=== PATIENT | male | born 1955 | race Caucasian/White ===

== ENCOUNTER 2016-04-17 15:16 | Inpatient (IN) | payer BC ==
[2016-04-17] MEDS ORDERED: ALBUTEROL SULFATE 2.5 MG/0.5 ML VIAL.NEB IH ONE ×2 (16:09→16:15)
[2016-04-17 16:34] LABS: Hematocrit 40.8 % (42.0-52.0); Hemoglobin 13.4 gm/dL (13.5-18.0); Mean Corpuscular Hemoglobin 30.9 pg (27-31); Mean Corpuscular Hgb Conc 32.8 g/dl (32-36); Mean Platelet Volume 11.6 fl (6.0-9.5); Neutrophil # 10.3 K/mm3 (1.3-6.0); Platelet Count 346 K/mm3 (150-450); Red Blood Count 4.34 M/mm3 (4.7-6.0); White Blood Count 13.6 K/mm3 (4.0-10.5)
--- NOTE | 2016-04-17 16:47 | ERNOTE ---
[id number] 4d 04/17/16 16:30 Source: patient Exam Limitations: no limitations - Immun/Allergies/Home Medications Immunizations: IMMUNIZATION HX Immunizations Up to Date Yes History of Influenza Vaccine No Allergies/Adverse Reactions: Allergies Iodinated Contrast Media - IV Dye Allergy (Mild, Verified 04/17/16 16:15) Hives iodine Allergy (Mild, Verified 04/17/16 16:15) Hives baclofen Adverse Reaction (Mild, Verified 04/17/16 16:15) FEELS WEIRD Home Medications: HOME MEDICATIONS Diltiazem HCl [Tiazac] 360 mg PO DAILY 08/05/14 [Last Taken Unknown] Mometasone/Formoterol [Dulera 200 Mcg/5 Mcg Inhaler] 2 puff IH BID 08/05/14 [ Last Taken Unknown] Tiotropium [place] [Spiriva] 1 cap IH DAILY 08/05/14 [Last Taken Unknown] Celecoxib [Celebrex] 400 mg PO DAILY 04/17/16 [Last Taken Unknown] Duloxetine HCl [Cymbalta] 60 mg PO BID 04/17/16 [Last Taken Unknown] Finasteride [Proscar] 5 mg PO DAILY 04/17/16 [Last Taken Unknown] Promethazine HCl [Phenergan] 25 mg PO QID PRN 04/17/16 [Last Taken Unknown] Tamsulosin HCl [Flomax] 0.4 mg PO DAILY 04/17/16 [Last Taken Unknown] Tizanidine HCl 4 mg PO TID 04/17/16 [Last Taken Unknown] - History of Present Illness Narrative: Patient started with URI symptoms about a week ago as well as nausea, vomiting and diarrhea. He was seen by his doctor,diagnosed with a viral illness and send home. His GI symptoms have resolved but he has been getting increasingly short of breath. He has some shortness of breath for quite a while but it has gotten worse over the last five days, slight cough with green sputum, subjective fever and chills. In his doctor's office today he was found to have O2sats of 80% and was send over to the ER Initiating event: Reports: upper resp illness. Denies: out of meds, sports/ exercise Frequency of episodes: Reports: no prior episodes Modifying Factors - (Improves): Reports: oxygen, rest Modifying Factors (Worsens): Reports: activity, coughing. Denies: lying down Associated Symptoms-Dyspnea: Reports: fever/chills, sweating, cough. Denies: chest pain/discomfort Prior Treatment: Reports: recently seen. Denies: currently on antibiotics Review of Systems - Review of Systems Constitutional: Present: See HPI, recent illness, fever, chills ENT: Present: nose congestion. Absent: ear pain, sore throat Respiratory: Present: See HPI, shortness of breath, cough Cardiology: Present: See HPI. Absent: chest pain Gastrointestinal/Abdominal: Present: See HPI. Absent: nausea, vomiting, abdominal pain Genitourinary: Present: other - nycturia 3-4 Musculoskeletal: Absent: muscle pain Neurological: Absent: headache - Patient's Past Medical History Patient History - Medical: Chronic Pain Patient History - Cardiac/Respiratory: COPD, Hypertension Patient History - Cancer: No Hx of Cancer Patient History - Surgical Procedures: Other - hernia - Family History Mother Family History - Medical: Hypothyroidism Family History - Cardiac/Respiratory: History Unknown Family History - Cancer: History Unknown Father Family History - Medical: Family History - Cancer: Lung Sister Family History - Medical: , Diabetes Type 2 - Social History Smoking Status: Current every day smoker Cigarettes Packs Per Day: 0.5 Alcohol Use: none Drug Use: none - Immunizations Immunizations Up to Date: Yes Hx Pneumococcal Vaccination: No History of Influenza Vaccine: No Physical Exam - Physical Exam General Appearance: Present: wd/wn, alert, no apparent distress Eye Exam: Normal inspection: bilateral, PERRL: bilateral Ears, Nose, Throat: Present: nasal congestion, normal pharynx. Absent: abnormal TM (R), abnormal TM (L) Respiratory: Present: no respiratory distress, decreased breath sounds, expiration (prolonged), wheezing Cardiovascular/Chest: Present: regular rate, rhythm, no murmur Gastrointestinal/Abdominal: Present: normal bowel sounds, nontender, nondistended, soft Extremity Exam: Present: no edema Neurological Exam: Present: alert, oriented, normal mood/affect Skin Exam: Present: normal color, warm/dry ED Progress - Results and Orders Patient's Lab Results:: I have reviewed the patient's lab results. - Vital Signs Patient's Vital Signs:: I have reviewed the patient's vital signs. Vital Signs: Vital Signs 04/17/16 04/17/16 15:57 16:16 Temperature 36.0 C L Pulse Rate 87 85 Respiratory 22 H 17 Rate Blood Pressure 150/78 O2 Sat by Pulse 83 L 93 Oximetry - X-Ray X-Ray #1 X-Ray: chest - possible right lower lung infiltrate Interpretation: Interp. by me - Progress/Reassessment Chief Complaint: Dyspnea Progress Note-Subjective: 04/17/16 17:35 discussed results with patient, agreed to admission patient just went to bathroom without oxygen, very short of breath 04/17/16 17:40 discussed with cheyenne Lopez to admit for pneumonia and COPD, start antibiotics per protocol Departure Clinical Impression: Pneumonia Qualifiers: Pneumonia type: due to unspecified organism Laterality: right Lung location: lower lobe of lung Qualified Code(s): J18.1 - Lobar pneumonia, unspecified organism COPD (chronic obstructive pulmonary disease) Qualifiers: COPD type: COPD with acute exacerbation Qualified Code(s): J44.1 - Chronic obstructive pulmonary disease with (acute) exacerbation - Departure Disposition: [facility] Condition: Good
[2016-04-17 16:54] LABS: Anion Gap 10.6 mmol/L (6.8-13.8); BUN/Creatinine Ratio 13.5 (9.0-21.6); Bilirubin, Total 0.2 mg/dL (0.0-1.1); Ca. Corrected For Albumin 10.2 mg/dL (8.4-10.2); Calcium * 8.9 mg/dL (7.9-10.9); Potassium 3.6 mmol/L (3.4-4.6); Total Protein 7.3 gm/dL (6.2-8.2)
[2016-04-17] MEDS ORDERED: METHYLPREDNISOLONE SOD SUCC/PF 125 MG/2 ML VIAL IV ONE (17:46)
[2016-04-17] MEDS ORDERED: AZITHROMYCIN 250 MG TABLET PO STA (17:52)
[2016-04-17] MEDS ORDERED: ACETAMINOPHEN 325 MG TABLET PO PRN (17:52)
[2016-04-17] MEDS ORDERED: ALBUTEROL SULFATE 2.5 MG/0.5 ML VIAL.NEB IH PRN (18:22)
[2016-04-17] MEDS ORDERED: ALBUTEROL SULFATE/IPRATROPIUM 3 ML NEBU IH SCH (19:00)
[2016-04-17] MEDS: NORMAL SALINE 1,000 ML IV PRN (19:30)
--- NOTE | 2016-04-17 20:10 | HP ---
<Tegan Muhammad - Last Filed: 04/17/16 23:13> Chief Complaint - Chief Complaint Date of Service: 04/17/16 Time of Service: 20:04 Chief Complaint: SOB History of Present Illness: Pt is a 60 year old WM pt of Dr. Palomares who presented to the ER following a doctors offices visit with o2 sats of 82% on RA for SOB. PMH is significant for: HTN, COPD, and chronic middle back pain. He states one week ago he experienced chills, vomiting, fatigue, and SOB. or Sunday (04/13 or 04/14) he was seen by Dr. Palomares and dx with gastroenteritis. He states that his breathing has been progressively getting worse. Denies any sore throat , fever/chill, or n/v/d currently. +orthopnea, +cough no sputum production. Denies chest pain, lightheadedness, or dizziness. States that his granddaughter was sick with cold last week. Er workup revealed: WBC 13.6, H/H 13.4/40.8, BNP 458. Chest xray with possible RLL infiltrate. Oxygen saturations improved with 2LNC to 94%, all other VS stable. He will be admitted to in patient observation for COPD exacerbation due to CAP requiring IV antibiotics, steroids, and breathing treatments. - Patient's Past Medical History Patient History - Medical: No pertinent hx, Chronic Pain - middle back Patient History - Cardiac/Respiratory: COPD, Hypertension Patient History - Cancer: No Hx of Cancer Patient History - Surgical Procedures: Other - umbilical hernia repair Patient History - Other: None - Family History Mother Family History - Medical: Hypothyroidism Family History - Cardiac/Respiratory: History Unknown Family History - Cancer: History Unknown Father Family History - Medical: Family History - Cancer: Lung Sister Family History - Medical: , Diabetes Type 2 - Social History Living Situations: alone Does anyone smoke in the home?: No Smoking Status: Current every day smoker Cigarettes Packs Per Day: 0.5 - ppd Have you smoked in the past 12 months: Yes Do you dip or chew tobacco: No Patient requests Smoking Cessation Consult: Yes Initiate information on Smoking Cessation: Yes Alcohol Use: none Drug Use: none - Immunizations Immunizations Up to Date: Yes Hx Pneumococcal Vaccination: No History of Influenza Vaccine: No Review Of Systems (GEN) - Review of Systems Generalized/Overall Review: Present: Fatigue EENTM: Present: No Symptoms Reported Respiratory: Present: Cough, Shortness of Breath, Orthopnea Cardiac: Present: No Symptoms Reported Abdominal: Present: No Symptoms Reported Genitourinary: Present: No Symptoms Reported Musculoskeletal: Present: Back Pain Neurological: Present: No Symptoms Reported Skin: Present: No Symptoms Reported Endocrine: Present: No Symptoms Reported Immunizations: IMMUNIZATION HX Immunizations Up to Date Yes History of Influenza Vaccine No Hx Pneumococcal Vaccination No Allergies/Adverse Reactions: Allergies Allergy/AdvReac Type Severity Reaction Status Date / Time Iodinated Contrast Media - Allergy Mild Hives Verified 04/17/16 16:15 IV Dye iodine Allergy Mild Hives Verified 04/17/16 16:15 baclofen AdvReac Mild FEELS WEIRD Verified 04/17/16 16:15 Home Medications: HOME MEDICATIONS Diltiazem HCl [Tiazac] 360 mg PO DAILY 08/05/14 [Last Taken Unknown] Mometasone/Formoterol [Dulera 200 Mcg/5 Mcg Inhaler] 2 puff IH BID 08/05/14 [ Last Taken Unknown] Tiotropium [place] [Spiriva] 1 cap IH DAILY 08/05/14 [Last Taken Unknown] Celecoxib [Celebrex] 400 mg PO DAILY 04/17/16 [Last Taken Unknown] Duloxetine HCl [Cymbalta] 60 mg PO BID 04/17/16 [Last Taken Unknown] Finasteride [Proscar] 5 mg PO DAILY 04/17/16 [Last Taken Unknown] Promethazine HCl [Phenergan] 25 mg PO QID PRN 04/17/16 [Last Taken Unknown] Tamsulosin HCl [Flomax] 0.4 mg PO DAILY 04/17/16 [Last Taken Unknown] Tizanidine HCl 4 mg PO TID 04/17/16 [Last Taken Unknown] Exam - Exam Vital Signs: Vital Signs - Last Taken Temp 36.7 C 04/17/16 19:46 Pulse 85 04/17/16 19:46 Resp 22 H 04/17/16 19:46 BP 144/77 04/17/16 19:46 Pulse Ox 22 L 04/17/16 19:46 Constitutional: Present: Alert, Oriented x3, Cooperative, Mild distress ENT Exam: Present: normal ENT inspection, hearing grossly normal Eye Exam: bilateral eye: normal inspection, PERRL Back Exam: Present: normal inspection, no vertebral tenderness Respiratory: Present: chest non-tender, decreased breath sounds, crackles, wheezing, expiration (prolonged) Cardiovascular/Chest: Present: no chest tenderness, no edema, no murmur, tachycardia Peripheral Pulses: dorsalis-pedis (R): 2+, dorsalis-pedis (L): 2+, radial (R): 2 +, radial (L): 2+ Abdomen: Present: Normal bowel sounds, soft, nontender, nondistended, no rebound tenderness Extremity: Present: normal range of motion, non-tender, normal inspection, no pedal edema, no calf tenderness, normal capillary refill Skin Exam: Present: normal color, warm/dry, no cyanosis Lymphatic: Present: no adenopathy Neurologic: Present: alert, normal mood/affect, oriented x 3, abnormal cerebellar tests Appearance: Present: appropriate appearance, appropriate insight, neat, no memory impairment Eye contact: Present: cooperative, good eye contact, normal speech Thoughts: Present: normal thought pattern, no apparent hallucination Diagnostic Studies: Laboratory Results Laboratory Tests 04/17/16 04/17/16 16:20 16:20 WBC 13.6 H Hgb 13.4 L Hct 40.8 L Plt Count 346 MPV 11.6 H Immature Gran % (Auto) 0.80 H Immature Gran # (Auto) 0.11 H Neutrophils % 76.0 H Lymphocytes % 14.2 L Sodium 138 Potassium 3.6 Chloride 100 Carbon Dioxide 31.0 Anion Gap 10.6 BUN 12 Creatinine 0.89 BUN/Creatinine Ratio 13.5 Random Glucose 120 H AST 26 ALT 46 Alkaline Phosphatase 82 B-Natriuretic Peptide 458 H Assessment/Plan - Assessment/Plan (1) COPD (chronic obstructive pulmonary disease) Assessment: Acute COPD exacerbation due to CAP. Will treat with IV steroids and scheduled breathing treatments. IS and cornet for pulmonary toileting, provide supplemental O2 to maintain sats >90%. Repeat labs in am. -Solumedrol IV 60mg Q6H -IS/[place] -Supplemental O2-maintain sats >90% -Duoneb treatments Q4H and Q2H PRN for wheezing Problem: Chronic QualifierTitle: COPD type: COPD with acute exacerbation Qualified Code(s) : J44.1 - Chronic obstructive pulmonary disease with (acute) exacerbation (2) Pneumonia Assessment: Chest xray with diffuse interstitial prominence bilaterally. WBC slightly elevated at 13.6, will check procalcitonin. Has remained afebrile since admission. Will treat with IV antibiotics and treatment as above in COPD exacerbation. -IV Rocephin 1gm Q24H -PO zithromax 250mg Q24H -CBC/CMP in am Problem: Suspected QualifierTitle: Pneumonia type: due to unspecified organism Laterality: right Lung location: lower lobe of lung Qualified Code(s): J18.1 - Lobar pneumonia, unspecified organism (3) BPH (benign prostatic hypertrophy) with urinary retention Assessment: Stable -Flomax 0.4mg Q day -Proscar 5mg Q day Problem: Chronic (4) HTN (hypertension) Assessment: Stable -VS Q4H -Cardizem 360mg day Problem: Chronic (5) Chronic mid back pain Assessment: Will add heating pad for comfort and continue home medications. -Cymbalta 60mg Q24H -Celebrex 400mg Q24H -Zanaflex PRN -Heating pad PRN Problem: Chronic QualifierTitle: Back pain laterality: midline Qualified Code(s): M54.6 - Pain in thoracic spine; G89.29 - Other chronic pain <Omar Nielsen - Last Filed: 04/18/16 18:36> Immunizations: IMMUNIZATION HX Immunizations Up to Date Yes History of Influenza Vaccine No Hx Pneumococcal Vaccination No Exam - Exam Vital Signs: Vital Signs - Last Taken Temp 36.6 C 04/18/16 11:43 Pulse 100 04/18/16 18:23 Resp 23 H 04/18/16 18:23 BP 117/76 04/18/16 11:43 Pulse Ox 93 04/18/16 18:23 Diagnostic Studies: Abnormal Lab Results 04/18/16 04/18/16 Range/Units 05:50 05:50 RBC 4.45 L (4.7-6.0) M/mm3 Hct 41.7 L (42.0-52.0) % MPV 11.1 H (6.0-9.5) fl Immature Gran % (Auto) 1.00 H (0.001-0.429) % Immature Gran # (Auto) 0.10 H (0.000-0.0310) K/mm3 Neutrophils % 88.8 H (42-75.0) % Lymphocytes % 9.5 L (20-51) % Neutrophils # 9.1 H (1.3-6.0) K/mm3 Lymphocytes # 1.0 L (1.5-3.5) k/mm3 Random Glucose 170 H D (70-110) mg/dL Calcium Adj for Albumin 10.4 H (8.4-10.2) mg/dL Albumin 1.9 L (3.4-5.0) gm/dl Microbiology 04/17/16 17:57 Blood Culture - Preliminary Blood NO GROWTH 24 HOURS Laboratory Results WBC 10.3 K/mm3 (4.0-10.5) D 04/18/16 05:50 RBC 4.45 M/mm3 (4.7-6.0) L 04/18/16 05:50 Hgb 13.6 gm/dL (13.5-18.0) 04/18/16 05:50 Hct 41.7 % (42.0-52.0) L 04/18/16 05:50 MCV 93.7 fl (78-100) 04/18/16 05:50 MCH 30.6 pg (27-31) 04/18/16 05:50 MCHC 32.6 g/dl (32-36) 04/18/16 05:50 RDW 14.0 % (11.5-14.0) 04/18/16 05:50 Plt Count 359 K/mm3 (150-450) 04/18/16 05:50 MPV 11.1 fl (6.0-9.5) H 04/18/16 05:50 Immature Gran % (Auto) 1.00 % (0.001-0.429) H 04/18/16 05:50 Immature Gran # (Auto) 0.10 K/mm3 (0.000-0.0310) H 04/18/16 05:50 Neutrophils % 88.8 % (42-75.0) H 04/18/16 05:50 Lymphocytes % 9.5 % (20-51) L 04/18/16 05:50 Monocytes % 0.6 % (0.0-9) 04/18/16 05:50 Eosinophils % 0.0 % (0.0-3.0) 04/18/16 05:50 Basophils % 0.1 % (0.0-1.0) 04/18/16 05:50 Nucleated RBC % 0.0 k/mm3 (0-1) 04/18/16 05:50 Neutrophils # 9.1 K/mm3 (1.3-6.0) H 04/18/16 05:50 Lymphocytes # 1.0 k/mm3 (1.5-3.5) L 04/18/16 05:50 Monocytes # 0.1 k/mm3 (0.0-1.0) 04/18/16 05:50 Eosinophils # 0.0 k/mm3 (0.0-0.7) 04/18/16 05:50 Absolute Basophils 0.0 k/mm3 (0.0-0.1) 04/18/16 05:50 Sodium 140 mmol/L (132-142) 04/18/16 05:50 Plasma Sodium 141 mmol/L (130-142) 04/18/16 05:50 Potassium 4.6 mmol/L (3.4-4.6) D 04/18/16 05:50 Chloride 102 mmol/L (97-106) 04/18/16 05:50 Carbon Dioxide 30.0 mmol/L (24-32.6) 04/18/16 05:50 Anion Gap 12.6 mmol/L (6.8-13.8) 04/18/16 05:50 BUN 13 mg/dL (6-23) 04/18/16 05:50 Creatinine 0.78 mg/dL (0.4-1.4) 04/18/16 05:50 Est GFR (Non-Af Amer) 108 mL/min (60-130) 04/18/16 05:50 BUN/Creatinine Ratio 16.7 (9.0-21.6) 04/18/16 05:50 Random Glucose 170 mg/dL (70-110) H D 04/18/16 05:50 Calcium 9.0 mg/dL (7.9-10.9) 04/18/16 05:50 Calcium Adj for Albumin 10.4 mg/dL (8.4-10.2) H 04/18/16 05:50 Total Bilirubin 0.2 mg/dL (0.0-1.1) 04/18/16 05:50 AST 26 U/L (0-48) 04/18/16 05:50 ALT 48 U/L (19-67) 04/18/16 05:50 Alkaline Phosphatase 83 U/L (50-170) 04/18/16 05:50 B-Natriuretic Peptide 458 pg/mL (5-175) H 04/17/16 16:20 Total Protein 7.1 gm/dL (6.2-8.2) 04/18/16 05:50 Albumin 1.9 gm/dl (3.4-5.0) L 04/18/16 05:50 Procalcitonin Less than 0.05 ng/mL (0.05-0.50) L 04/17/16 16:20 Assessment/Plan - Narrative Narrative: I reviewed the chart and examined the patient. I personally directed all of [facility]'s care for him. He was in our office on 04/12/2016, complaining that he had vomiting and diarrhea and nausea. He felt terrible. At that time he did not have any respiratory signs or symptoms. He does have known COPD. He was treated at home with clear liquids, rest, and Phenergan. His gastrointestinal symptoms improved, but steadily day by day his breathing worsened. He had no fever, but had a cough. He was short of breath both at rest and even more so with activity. He returned to our office on April 17 for a reevaluation. Because his oxygen saturation on room air was about 82 or 83%, and because he was struggling to breathe, we arranged for his further evaluation to be in the [facility] emergency room. Chest x-ray suggests pneumonitis. This is probably originally viral, but could represent aspiration pneumonitis because of the recurrent vomiting he had at the beginning of this illness. He will be treated with IV steroids, nebulized bronchodilators, and intravenous antibiotics, as well as supplemental oxygen. I estimate a hospital stay of 3-4 days. - Assessment/Plan (1) COPD exacerbation Problem: Acute (2) Acute respiratory failure with hypoxia Problem: Acute
[2016-04-17] MEDS ORDERED: ALBUTEROL SULFATE/IPRATROPIUM 3 ML NEBU IH PRN (20:39)
[2016-04-17] MEDS ORDERED: METHYLPREDNISOLONE SOD SUCC 60 MG in WATER FOR INJ.,BACTERIOSTATIC 0 ML IV SCH (20:45)
[2016-04-17] MEDS: DULoxetine HCL 30 MG CAPSULE.SA PO SCH (20:46)
[2016-04-17] MEDS: tiZANidine HCL 4 MG TABLET PO SCH (20:46)
[2016-04-17] MEDS: ALBUTEROL SULFATE/IPRATROPIUM 3 ML NEBU IH SCH (22:06)
[2016-04-18] MEDS ORDERED: METHYLPREDNISOLONE SOD SUCC/PF 125 MG/2 ML VIAL IV SCH (02:00)
[2016-04-18] MEDS: ALBUTEROL SULFATE/IPRATROPIUM 3 ML NEBU IH SCH ×6 (02:20→22:25)
[2016-04-18] MEDS: NORMAL SALINE 1,000 ML IV PRN ×2 (05:44→22:59)
[2016-04-18 05:54] LABS: Hematocrit 41.7 % (42.0-52.0); Hemoglobin 13.6 gm/dL (13.5-18.0); Mean Cell Volume 93.7 fl (78-100); Mean Corpuscular Hemoglobin 30.6 pg (27-31); Mean Corpuscular Hgb Conc 32.6 g/dl (32-36); Mean Platelet Volume 11.1 fl (6.0-9.5); Neutrophil # 9.1 K/mm3 (1.3-6.0); Neutrophil % 88.8 % (42-75.0); Platelet Count 359 K/mm3 (150-450); Red Blood Count 4.45 M/mm3 (4.7-6.0); White Blood Count 10.3 K/mm3 (4.0-10.5)
[2016-04-18 06:17] LABS: Albumin * 1.9 gm/dl (3.4-5.0); Anion Gap 12.6 mmol/L (6.8-13.8); BUN/Creatinine Ratio 16.7 (9.0-21.6); Bilirubin, Total 0.2 mg/dL (0.0-1.1); Ca. Corrected For Albumin 10.4 mg/dL (8.4-10.2); Potassium 4.6 mmol/L (3.4-4.6); Total Protein 7.1 gm/dL (6.2-8.2)
[2016-04-18] MEDS: METHYLPREDNISOLONE SOD SUCC 60 MG in WATER FOR INJ.,BACTERIOSTATIC 0 ML IV SCH ×3 (07:45→20:07)
[2016-04-18] MEDS: ENOXAPARIN SODIUM 40 MG/0.4 ML SYRG SC SCH (07:47)
[2016-04-18] MEDS ORDERED: CELECOXIB 100 MG CAPSULE PO SCH (09:00)
[2016-04-18] MEDS: FLUTICASONE/SALMETEROL 14 PUFF DISK.W.DEV IH SCH ×2 (09:06→20:07)
[2016-04-18] MEDS: TAMSULOSIN HCL 0.4 MG CAP.SR.24H PO SCH (09:08)
[2016-04-18] MEDS: DILTIAZEM HCL 180 MG CAP.SR.24H PO SCH (09:08)
[2016-04-18] MEDS: AZITHROMYCIN 250 MG TABLET PO SCH (09:08)
[2016-04-18] MEDS: FINASTERIDE 5 MG TABLET PO SCH (09:08)
[2016-04-18] MEDS: DULoxetine HCL 30 MG CAPSULE.SA PO SCH ×2 (09:08→20:07)
[2016-04-18] MEDS: tiZANidine HCL 4 MG TABLET PO SCH ×3 (09:09→17:29)
--- NOTE | 2016-04-18 18:42 | PN ---
Subjective - Date and Time Seen Date: 04/18/16 Time: 07:00 Subjective Narrative: Mr. Godinez's sleep last night was interrupted by shortness of breath and coughing. This morning he feels a little bit better. He still requires supplemental oxygen. He still has a cough, but it's not as severe. He feels as if his chest is loosening up. He is extremely short of breath with moving across the room, but his appetite has improved and he is thinking about taking a shower. There is no nausea vomiting or diarrhea. Objective - Review of Systems Generalized/Overall Review: Reports: Malaise, Fatigue EENTM: Reports: Nose Congestion Respiratory: Reports: Cough, Shortness of Breath, Wheezing Cardiac: Reports: No Symptoms Reported Abdominal: Reports: No Symptoms Reported Genitourinary Symptoms: Reports: No Symptoms Reported Musculoskeletal Complaints: Reports: Back Pain Neurological: Reports: No Symptoms Reported Skin: Reports: No Symptoms Reported Endocrine: Reports: No Symptoms Reported Misc: All systems neg except as marked - Vitals Vitals: Last Vital Signs Temp 36.6 C 04/18/16 11:43 Pulse 100 04/18/16 18:23 Resp 23 H 04/18/16 18:23 BP 117/76 04/18/16 11:43 Pulse Ox 93 04/18/16 18:23 - Abnormal Lab Findings Abnormal Lab Findings: Abnormal Lab Results 04/18/16 04/18/16 Range/Units 05:50 05:50 RBC 4.45 L (4.7-6.0) M/mm3 Hct 41.7 L (42.0-52.0) % MPV 11.1 H (6.0-9.5) fl Immature Gran % (Auto) 1.00 H (0.001-0.429) % Immature Gran # (Auto) 0.10 H (0.000-0.0310) K/mm3 Neutrophils % 88.8 H (42-75.0) % Lymphocytes % 9.5 L (20-51) % Neutrophils # 9.1 H (1.3-6.0) K/mm3 Lymphocytes # 1.0 L (1.5-3.5) k/mm3 Random Glucose 170 H D (70-110) mg/dL Calcium Adj for Albumin 10.4 H (8.4-10.2) mg/dL Albumin 1.9 L (3.4-5.0) gm/dl - Exam Constitutional: Present: Alert, Oriented x3, Cooperative, Well developed, Well nourished, Mild distress ENT Exam: Present: normal ENT inspection, hearing grossly normal, pharynx normal , TMs normal, nasal congestion, nasal drainage Neck: Present: normal inspection Respiratory: Present: respiratory distress - Mild respiratory distress on examination this morning. He has 4-5 word dyspnea., decreased breath sounds, wheezing, expiration (prolonged) Cardiovascular/Chest: Present: regular rate, rhythm, no murmur, tachycardia Abdomen: Present: Normal bowel sounds, soft, nontender, nondistended, no rebound tenderness, no hepatospenomegaly, no masses Extremity: Present: normal inspection, pedal edema - Minimal pedal edema Skin Exam: Present: normal color, warm/dry, no cyanosis Neurologic: Present: alert, normal mood/affect, oriented x 3 Appearance: Present: appropriate appearance, appropriate insight, neat, no memory impairment Eye contact: Present: cooperative, good eye contact Thoughts: Present: normal thought pattern Assessment/Plan Plan Narrative: Continue IV antibiotics. Continue IV steroids. Continue, but will wean oxygen. Continue nebulized medication. Follow labs. Estimated stay of approximately 3 days. Increase ambulation. - Problems/Diagnosis (1) COPD exacerbation Problem: Acute (2) Acute respiratory failure with hypoxia Problem: Acute (3) BPH (benign prostatic hypertrophy) with urinary retention Problem: Chronic (4) COPD (chronic obstructive pulmonary disease) Problem: Chronic Qualifiers: COPD type: COPD with acute exacerbation Qualified Code(s): J44.1 - Chronic obstructive pulmonary disease with (acute) exacerbation (5) Chronic mid back pain Problem: Chronic Qualifiers: Back pain laterality: midline Qualified Code(s): M54.6 - Pain in thoracic spine; G89.29 - Other chronic pain (6) HTN (hypertension) Problem: Chronic Qualifiers: Hypertension type: essential hypertension Qualified Code(s): I10 - Essential (primary) hypertension (7) Pneumonia Problem: Suspected Qualifiers: Pneumonia type: aspiration pneumonia Aspiration pneumonia type: due to vomit Laterality: bilateral Lung location: unspecified part of lung Qualified Code(s): J69.0 - Pneumonitis due to inhalation of food and vomit
[2016-04-19] MEDS: METHYLPREDNISOLONE SOD SUCC 60 MG in WATER FOR INJ.,BACTERIOSTATIC 0 ML IV SCH ×4 (02:02→20:19)
[2016-04-19] MEDS: ALBUTEROL SULFATE/IPRATROPIUM 3 ML NEBU IH SCH ×6 (02:08→23:58)
[2016-04-19 05:37] LABS: Hematocrit 38.4 % (42.0-52.0); Hemoglobin 12.6 gm/dL (13.5-18.0); Mean Cell Volume 94.3 fl (78-100); Mean Corpuscular Hgb Conc 32.8 g/dl (32-36); Mean Platelet Volume 11.2 fl (6.0-9.5); Neutrophil # 17.2 K/mm3 (1.3-6.0); Neutrophil % 89.9 % (42-75.0); Platelet Count 358 K/mm3 (150-450); Red Blood Count 4.07 M/mm3 (4.7-6.0); Red Cell Distribution Width 14.3 % (11.5-14.0); White Blood Count 19.1 K/mm3 (4.0-10.5)
[2016-04-19 05:52] LABS: Anion Gap 10.7 mmol/L (6.8-13.8); BUN/Creatinine Ratio 21.5 (9.0-21.6); Calcium * 8.9 mg/dL (7.9-10.9); Carbon Dioxide 31.8 mmol/L (24-32.6); Estimated Creat Clear 109.1; Potassium 4.5 mmol/L (3.4-4.6)
[2016-04-19] MEDS: 0.5 NORMAL SALINE 1,000 ML IV PRN (08:56)
[2016-04-19] MEDS: INSULIN DETEMIR 100 UNITS/ML VIAL SC SCH ×2 (08:59→18:51)
[2016-04-19] MEDS: ENOXAPARIN SODIUM 40 MG/0.4 ML SYRG SC SCH (09:00)
[2016-04-19] MEDS: FLUTICASONE/SALMETEROL 14 PUFF DISK.W.DEV IH SCH ×2 (09:01→20:19)
[2016-04-19] MEDS: DILTIAZEM HCL 180 MG CAP.SR.24H PO SCH (09:02)
[2016-04-19] MEDS: FINASTERIDE 5 MG TABLET PO SCH (09:03)
[2016-04-19] MEDS: TAMSULOSIN HCL 0.4 MG CAP.SR.24H PO SCH (09:03)
[2016-04-19] MEDS: DULoxetine HCL 30 MG CAPSULE.SA PO SCH ×2 (09:03→20:19)
[2016-04-19] MEDS: tiZANidine HCL 4 MG TABLET PO SCH ×3 (09:03→17:06)
[2016-04-19] MEDS: AZITHROMYCIN 250 MG TABLET PO SCH (09:04)
--- NOTE | 2016-04-19 09:05 | PN ---
Subjective - Date and Time Seen Date: 04/19/16 Time: 07:10 Subjective Narrative: Mr. Godinez's sleep last night was less interrupted by shortness of breath and coughing. This morning he feels moderately better. He still requires supplemental oxygen. He still has a cough, but it's not as severe. He feels as if his chest is loosening up. He is less short of breath with moving across the room, his appetite has improved and yesterday he managed to take a shower. There is no nausea vomiting or diarrhea. He has not yet been walking in the halls. Objective - Review of Systems Generalized/Overall Review: Reports: Malaise EENTM: Reports: No Symptoms Reported Respiratory: Reports: Cough, Shortness of Breath Cardiac: Reports: No Symptoms Reported Abdominal: Reports: No Symptoms Reported Genitourinary Symptoms: Reports: No Symptoms Reported Musculoskeletal Complaints: Reports: No Symptoms Reported Neurological: Reports: No Symptoms Reported Skin: Reports: No Symptoms Reported Endocrine: Reports: No Symptoms Reported Misc: All systems neg except as marked - Vitals Vitals: Last Vital Signs Selected Entries 04/18/16 04/19/16 04/19/16 06:59 02:20 06:19 Temperature 36.5 C 36.7 C Temperature Oral Oral Source Pulse Rate 99 95 97 Pulse Strength Normal Respiratory 20 18 20 Rate Respiratory Normal Depth Respiratory Normal Effort Non-Labored Respiratory Normal Pattern Blood Pressure 139/82 130/79 Blood Pressure Supine Position O2 Sat by Pulse 94 92 Oximetry Oxygen Delivery Nasal Cannula Nasal Cannula Nasal Cannula Method Oxygen Flow 3 2 2 Rate - Abnormal Lab Findings Abnormal Lab Findings: Abnormal Lab Results 04/19/16 04/19/16 Range/Units 05:15 05:15 WBC 19.1 H D (4.0-10.5) K/mm3 RBC 4.07 L (4.7-6.0) M/mm3 Hgb 12.6 L (13.5-18.0) gm/dL Hct 38.4 L (42.0-52.0) % RDW 14.3 H (11.5-14.0) % MPV 11.2 H (6.0-9.5) fl Immature Gran % (Auto) 0.80 H (0.001-0.429) % Immature Gran # (Auto) 0.16 H (0.000-0.0310) K/mm3 Neutrophils % 89.9 H (42-75.0) % Lymphocytes % 6.7 L (20-51) % Neutrophils # 17.2 H (1.3-6.0) K/mm3 Lymphocytes # 1.3 L (1.5-3.5) k/mm3 Plasma Sodium 144 H (130-142) mmol/L Random Glucose 218 H (70-110) mg/dL - Exam Constitutional: Present: Alert, Oriented x3, Cooperative, Well developed, Well nourished, Mild distress ENT Exam: Present: normal ENT inspection, hearing grossly normal Neck: Present: normal inspection Respiratory: Present: decreased breath sounds, wheezing, expiration (prolonged) Cardiovascular/Chest: Present: regular rate, rhythm, no murmur Abdomen: Present: Normal bowel sounds, soft, nontender, nondistended, no rebound tenderness, no hepatospenomegaly, no masses Extremity: Present: normal inspection, no pedal edema Skin Exam: Present: normal color, warm/dry, no cyanosis Neurologic: Present: alert, oriented x 3 Appearance: Present: appropriate appearance, appropriate insight, neat, no memory impairment Eye contact: Present: cooperative, good eye contact, normal speech - still SOB with talking, but less so Assessment/Plan Plan Narrative: Hyperglycemia from steroids. Otherwise improving. DC Tele. Add insulin. Follow labs. Walk more. IV antibiotics, taper O2, breathing treatments. Home in 2 days. - Problems/Diagnosis (1) COPD exacerbation Problem: Acute (2) Acute respiratory failure with hypoxia Problem: Acute (3) BPH (benign prostatic hypertrophy) with urinary retention Problem: Chronic (4) COPD (chronic obstructive pulmonary disease) Problem: Chronic Qualifiers: COPD type: COPD with acute exacerbation Qualified Code(s): J44.1 - Chronic obstructive pulmonary disease with (acute) exacerbation (5) Chronic mid back pain Problem: Chronic Qualifiers: Back pain laterality: midline Qualified Code(s): M54.6 - Pain in thoracic spine; G89.29 - Other chronic pain (6) HTN (hypertension) Problem: Chronic Qualifiers: Hypertension type: essential hypertension Qualified Code(s): I10 - Essential (primary) hypertension (7) Pneumonia Problem: Suspected Qualifiers: Pneumonia type: aspiration pneumonia Aspiration pneumonia type: due to vomit Laterality: bilateral Lung location: unspecified part of lung Qualified Code(s): J69.0 - Pneumonitis due to inhalation of food and vomit (8) Hyperglycemia, drug-induced Problem: Acute
[2016-04-19] MEDS: ALBUTEROL SULFATE 2.5 MG/0.5 ML VIAL.NEB IH PRN (18:22)
[2016-04-20] MEDS: METHYLPREDNISOLONE SOD SUCC 60 MG in WATER FOR INJ.,BACTERIOSTATIC 0 ML IV SCH ×4 (01:57→20:40)
[2016-04-20] MEDS: 0.5 NORMAL SALINE 1,000 ML IV PRN ×2 (01:59→23:51)
[2016-04-20] MEDS: ALBUTEROL SULFATE/IPRATROPIUM 3 ML NEBU IH SCH ×6 (03:09→22:11)
[2016-04-20 06:00] LABS: Hematocrit 39.6 % (42.0-52.0); Hemoglobin 12.8 gm/dL (13.5-18.0); Mean Cell Volume 95.9 fl (78-100); Mean Corpuscular Hgb Conc 32.3 g/dl (32-36); Mean Platelet Volume 11.1 fl (6.0-9.5); Neutrophil % 91.8 % (42-75.0); Platelet Count 361 K/mm3 (150-450); Red Blood Count 4.13 M/mm3 (4.7-6.0); Red Cell Distribution Width 14.6 % (11.5-14.0); White Blood Count 21.9 K/mm3 (4.0-10.5)
[2016-04-20 06:17] LABS: Anion Gap 10.6 mmol/L (6.8-13.8); BUN/Creatinine Ratio 24.3 (9.0-21.6); Calcium * 8.9 mg/dL (7.9-10.9); Carbon Dioxide 30.7 mmol/L (24-32.6); Estimated Creat Clear 123.2; Potassium 4.3 mmol/L (3.4-4.6)
[2016-04-20] MEDS: INSULIN DETEMIR 100 UNITS/ML VIAL SC SCH ×2 (07:06→18:58)
[2016-04-20] MEDS: ENOXAPARIN SODIUM 40 MG/0.4 ML SYRG SC SCH (07:07)
[2016-04-20] MEDS: FLUTICASONE/SALMETEROL 14 PUFF DISK.W.DEV IH SCH ×2 (09:09→20:40)
[2016-04-20] MEDS: DILTIAZEM HCL 180 MG CAP.SR.24H PO SCH (09:09)
[2016-04-20] MEDS: TAMSULOSIN HCL 0.4 MG CAP.SR.24H PO SCH (09:10)
[2016-04-20] MEDS: DULoxetine HCL 30 MG CAPSULE.SA PO SCH ×2 (09:10→20:41)
[2016-04-20] MEDS: tiZANidine HCL 4 MG TABLET PO SCH ×3 (09:11→17:46)
[2016-04-20] MEDS: FINASTERIDE 5 MG TABLET PO SCH (09:11)
[2016-04-20] MEDS: AZITHROMYCIN 250 MG TABLET PO SCH (09:11)
[2016-04-20] MEDS: ALBUTEROL SULFATE 2.5 MG/0.5 ML VIAL.NEB IH PRN ×2 (10:57→14:13)
[2016-04-20] MEDS: DENTAL ADHESIVE 39 APPL TUBE TP SCH (12:04)
--- NOTE | 2016-04-20 15:01 | PN ---
Subjective - Date and Time Seen Date: 04/20/16 Time: 14:57 Subjective Narrative: Mr. Godinez's sleep last night was less interrupted by shortness of breath and coughing. This morning he feels about the same. He still requires supplemental oxygen. He still has a cough, but it's not as severe. He feels as if his chest is loosening up. He is less short of breath with moving across the room, his appetite has improved but he is quite short of breath walking in the halls, even with supplemental oxygen. There is no nausea vomiting or diarrhea. Objective - Review of Systems Generalized/Overall Review: Reports: Weakness, Malaise EENTM: Reports: No Symptoms Reported Respiratory: Reports: Cough, Shortness of Breath Cardiac: Reports: No Symptoms Reported Abdominal: Reports: No Symptoms Reported Genitourinary Symptoms: Reports: No Symptoms Reported Musculoskeletal Complaints: Reports: No Symptoms Reported Neurological: Reports: No Symptoms Reported Skin: Reports: No Symptoms Reported Endocrine: Reports: No Symptoms Reported Misc: All systems neg except as marked - Vitals Vitals: Last Vital Signs Selected Entries 04/20/16 04/20/16 14:04 14:23 Temperature 36.6 C Temperature Oral Source Pulse Rate 86 114 H Respiratory 20 20 Rate Blood Pressure 124/76 Blood Pressure Supine Position O2 Sat by Pulse 96 Oximetry Oxygen Delivery Nasal Cannula Nasal Cannula Method Oxygen Flow 2 2 Rate - Abnormal Lab Findings Abnormal Lab Findings: Abnormal Lab Results 04/20/16 04/20/16 Range/Units 05:15 05:15 WBC 21.9 H (4.0-10.5) K/mm3 RBC 4.13 L (4.7-6.0) M/mm3 Hgb 12.8 L (13.5-18.0) gm/dL Hct 39.6 L (42.0-52.0) % RDW 14.6 H (11.5-14.0) % MPV 11.1 H (6.0-9.5) fl Immature Gran % (Auto) 1.60 H (0.001-0.429) % Immature Gran # (Auto) 0.36 H (0.000-0.0310) K/mm3 Neutrophils % 91.8 H (42-75.0) % Lymphocytes % 4.9 L (20-51) % Neutrophils # 20.0 H (1.3-6.0) K/mm3 Lymphocytes # 1.1 L (1.5-3.5) k/mm3 BUN/Creatinine Ratio 24.3 H (9.0-21.6) Random Glucose 184 H (70-110) mg/dL - Exam Constitutional: Present: Alert, Oriented x3, Cooperative, Well developed, Well nourished, Mild distress ENT Exam: Present: normal ENT inspection, hearing grossly normal Neck: Present: normal inspection Respiratory: Present: decreased breath sounds, wheezing, expiration (prolonged) Cardiovascular/Chest: Present: regular rate, rhythm, no murmur Abdomen: Present: Normal bowel sounds, soft, nontender, nondistended, no rebound tenderness, no hepatospenomegaly, no masses Extremity: Present: normal inspection, pedal edema Skin Exam: Present: normal color, warm/dry, no cyanosis Neurologic: Present: alert, oriented x 3 Appearance: Present: appropriate appearance, appropriate insight, neat Eye contact: Present: cooperative, good eye contact, normal speech Thoughts: Present: normal thought pattern Assessment/Plan Plan Narrative: His white blood count is elevated due to the steroids. His acute exacerbation of COPD is improving, but very slowly. We will continue the IV steroids, the IV antibiotics, the walking in the halls, and the breathing treatments. I estimate given how slowly he is improving that he will now be here through the weekend, perhaps being ready to go home in 4 days. - Problems/Diagnosis (1) COPD exacerbation Problem: Acute (2) Acute respiratory failure with hypoxia Problem: Acute (3) BPH (benign prostatic hypertrophy) with urinary retention Problem: Chronic (4) COPD (chronic obstructive pulmonary disease) Problem: Chronic Qualifiers: COPD type: COPD with acute exacerbation Qualified Code(s): J44.1 - Chronic obstructive pulmonary disease with (acute) exacerbation (5) Chronic mid back pain Problem: Chronic Qualifiers: Back pain laterality: midline Qualified Code(s): M54.6 - Pain in thoracic spine; G89.29 - Other chronic pain (6) HTN (hypertension) Problem: Chronic Qualifiers: Hypertension type: essential hypertension Qualified Code(s): I10 - Essential (primary) hypertension (7) Pneumonia Problem: Suspected Qualifiers: Pneumonia type: aspiration pneumonia Aspiration pneumonia type: due to vomit Laterality: bilateral Lung location: unspecified part of lung Qualified Code(s): J69.0 - Pneumonitis due to inhalation of food and vomit (8) Hyperglycemia, drug-induced Problem: Acute
[2016-04-21] MEDS: METHYLPREDNISOLONE SOD SUCC 60 MG in WATER FOR INJ.,BACTERIOSTATIC 0 ML IV SCH ×4 (01:58→20:24)
[2016-04-21] MEDS: ALBUTEROL SULFATE/IPRATROPIUM 3 ML NEBU IH SCH ×6 (02:09→22:13)
[2016-04-21 06:05] LABS: Hematocrit 40.7 % (42.0-52.0); Hemoglobin 13.2 gm/dL (13.5-18.0); Mean Cell Volume 95.3 fl (78-100); Mean Corpuscular Hemoglobin 30.9 pg (27-31); Mean Corpuscular Hgb Conc 32.4 g/dl (32-36); Mean Platelet Volume 11.3 fl (6.0-9.5); Neutrophil % 89.1 % (42-75.0); Platelet Count 372 K/mm3 (150-450); Red Blood Count 4.27 M/mm3 (4.7-6.0); Red Cell Distribution Width 14.5 % (11.5-14.0); White Blood Count 16.8 K/mm3 (4.0-10.5)
[2016-04-21 06:15] LABS: Anion Gap 10.1 mmol/L (6.8-13.8); BUN/Creatinine Ratio 18.8 (9.0-21.6); Calcium * 8.8 mg/dL (7.9-10.9); Carbon Dioxide 33.2 mmol/L (24-32.6); Estimated Creat Clear 101.4; Potassium 4.3 mmol/L (3.4-4.6)
[2016-04-21] MEDS: INSULIN DETEMIR 100 UNITS/ML VIAL SC SCH ×2 (06:50→18:56)
[2016-04-21] MEDS: ENOXAPARIN SODIUM 40 MG/0.4 ML SYRG SC SCH (09:00)
[2016-04-21] MEDS: DILTIAZEM HCL 180 MG CAP.SR.24H PO SCH (09:00)
[2016-04-21] MEDS: FLUTICASONE/SALMETEROL 14 PUFF DISK.W.DEV IH SCH ×2 (09:00→20:24)
[2016-04-21] MEDS: DULoxetine HCL 30 MG CAPSULE.SA PO SCH ×2 (09:01→20:24)
[2016-04-21] MEDS: TAMSULOSIN HCL 0.4 MG CAP.SR.24H PO SCH (09:02)
[2016-04-21] MEDS: FINASTERIDE 5 MG TABLET PO SCH (09:02)
[2016-04-21] MEDS: tiZANidine HCL 4 MG TABLET PO SCH ×3 (09:02→16:09)
[2016-04-21] MEDS: DENTAL ADHESIVE 39 APPL TUBE TP SCH (09:02)
[2016-04-21] MEDS: AZITHROMYCIN 250 MG TABLET PO SCH (09:05)
--- NOTE | 2016-04-21 17:27 | PN ---
Subjective - Date and Time Seen Date: 04/21/16 Time: 15:00 Subjective Narrative: Mr. Godinez's sleep last night was interrupted by staff coming into the room. This afternoon he feels better than yesterday. He is now off supplemental oxygen. He still has a cough, but it's not as severe. He feels as if his chest is loosening up. He is less short of breath with moving across the room and in the halls, his appetite has improved but he is short of breath walking in the halls. There is no nausea vomiting or diarrhea. Objective - Review of Systems Generalized/Overall Review: Reports: Malaise EENTM: Reports: No Symptoms Reported Respiratory: Reports: Cough, Shortness of Breath Cardiac: Reports: No Symptoms Reported Abdominal: Reports: No Symptoms Reported Genitourinary Symptoms: Reports: No Symptoms Reported Musculoskeletal Complaints: Reports: Back Pain Neurological: Reports: No Symptoms Reported Skin: Reports: No Symptoms Reported Endocrine: Reports: No Symptoms Reported Misc: All systems neg except as marked - Vitals Vitals: Last Vital Signs Temp 36.9 C 04/21/16 15:17 Pulse 89 04/21/16 15:17 Resp 20 04/21/16 15:17 BP 131/80 04/21/16 15:17 Pulse Ox 90 04/21/16 15:17 - Abnormal Lab Findings Abnormal Lab Findings: Abnormal Lab Results 04/21/16 04/21/16 Range/Units 05:38 05:38 WBC 16.8 H D (4.0-10.5) K/mm3 RBC 4.27 L (4.7-6.0) M/mm3 Hgb 13.2 L (13.5-18.0) gm/dL Hct 40.7 L (42.0-52.0) % RDW 14.5 H (11.5-14.0) % MPV 11.3 H (6.0-9.5) fl Immature Gran % (Auto) 2.30 H (0.001-0.429) % Immature Gran # (Auto) 0.38 H (0.000-0.0310) K/mm3 Neutrophils % 89.1 H (42-75.0) % Lymphocytes % 5.7 L (20-51) % Neutrophils # 15.0 H (1.3-6.0) K/mm3 Lymphocytes # 1.0 L (1.5-3.5) k/mm3 Carbon Dioxide 33.2 H (24-32.6) mmol/L Random Glucose 151 H (70-110) mg/dL - Exam Constitutional: Present: Alert, Oriented x3, Cooperative, Well developed, Well nourished, Mild distress ENT Exam: Present: normal ENT inspection, hearing grossly normal Neck: Present: normal inspection Respiratory: Present: decreased breath sounds, expiration (prolonged) Cardiovascular/Chest: Present: regular rate, rhythm, no murmur Abdomen: Present: Normal bowel sounds, soft, nontender, nondistended, no rebound tenderness, no hepatospenomegaly, no masses Extremity: Present: normal inspection, no pedal edema Skin Exam: Present: normal color, warm/dry, no cyanosis Neurologic: Present: alert, oriented x 3 Appearance: Present: appropriate appearance, appropriate insight, neat, no memory impairment Eye contact: Present: cooperative, good eye contact Thoughts: Present: normal thought pattern Assessment/Plan Plan Narrative: Same program. Follow labs. Home in 2 days. - Problems/Diagnosis (1) COPD exacerbation Problem: Acute (2) Acute respiratory failure with hypoxia Problem: Acute (3) BPH (benign prostatic hypertrophy) with urinary retention Problem: Chronic (4) COPD (chronic obstructive pulmonary disease) Problem: Chronic Qualifiers: COPD type: COPD with acute exacerbation Qualified Code(s): J44.1 - Chronic obstructive pulmonary disease with (acute) exacerbation (5) Chronic mid back pain Problem: Chronic Qualifiers: Back pain laterality: midline Qualified Code(s): M54.6 - Pain in thoracic spine; G89.29 - Other chronic pain (6) HTN (hypertension) Problem: Chronic Qualifiers: Hypertension type: essential hypertension Qualified Code(s): I10 - Essential (primary) hypertension (7) Pneumonia Problem: Suspected Qualifiers: Pneumonia type: aspiration pneumonia Aspiration pneumonia type: due to vomit Laterality: bilateral Lung location: unspecified part of lung Qualified Code(s): J69.0 - Pneumonitis due to inhalation of food and vomit (8) Hyperglycemia, drug-induced Problem: Acute
[2016-04-21] MEDS: 0.5 NORMAL SALINE 1,000 ML IV PRN (17:44)
[2016-04-21] MEDS ORDERED: MAGNESIUM CITRATE 300 ML BTL PO ONE (19:50)
[2016-04-22] MEDS: METHYLPREDNISOLONE SOD SUCC 60 MG in WATER FOR INJ.,BACTERIOSTATIC 0 ML IV SCH ×4 (02:16→20:20)
[2016-04-22] MEDS: ALBUTEROL SULFATE/IPRATROPIUM 3 ML NEBU IH SCH ×6 (02:26→22:15)
[2016-04-22 05:14] LABS: Hematocrit 41.4 % (42.0-52.0); Hemoglobin 13.3 gm/dL (13.5-18.0); Mean Cell Volume 94.5 fl (78-100); Mean Corpuscular Hemoglobin 30.4 pg (27-31); Mean Corpuscular Hgb Conc 32.1 g/dl (32-36); Mean Platelet Volume 11.1 fl (6.0-9.5); Neutrophil # 12.6 K/mm3 (1.3-6.0); Neutrophil % 87.4 % (42-75.0); Platelet Count 389 K/mm3 (150-450); Red Blood Count 4.38 M/mm3 (4.7-6.0); Red Cell Distribution Width 14.2 % (11.5-14.0); White Blood Count 14.5 K/mm3 (4.0-10.5)
[2016-04-22 05:25] LABS: Anion Gap 8.7 mmol/L (6.8-13.8); BUN/Creatinine Ratio 19.8 (9.0-21.6); Calcium * 8.5 mg/dL (7.9-10.9); Carbon Dioxide 33.8 mmol/L (24-32.6); Estimated Creat Clear 100.3; Potassium 4.5 mmol/L (3.4-4.6)
[2016-04-22] MEDS: INSULIN DETEMIR 100 UNITS/ML VIAL SC SCH ×2 (07:26→19:10)
[2016-04-22] MEDS: ENOXAPARIN SODIUM 40 MG/0.4 ML SYRG SC SCH (07:27)
[2016-04-22] MEDS: tiZANidine HCL 4 MG TABLET PO SCH ×3 (08:47→17:09)
[2016-04-22] MEDS: FLUTICASONE/SALMETEROL 14 PUFF DISK.W.DEV IH SCH ×2 (08:47→20:25)
[2016-04-22] MEDS: DULoxetine HCL 30 MG CAPSULE.SA PO SCH ×2 (08:48→20:17)
[2016-04-22] MEDS: FINASTERIDE 5 MG TABLET PO SCH (08:48)
[2016-04-22] MEDS: TAMSULOSIN HCL 0.4 MG CAP.SR.24H PO SCH (08:48)
[2016-04-22] MEDS: DILTIAZEM HCL 180 MG CAP.SR.24H PO SCH (08:48)
[2016-04-22] MEDS: DENTAL ADHESIVE 39 APPL TUBE TP SCH (08:49)
--- NOTE | 2016-04-22 13:13 | PN ---
Subjective - Date and Time Seen Date: 04/22/16 Time: 13:11 Subjective Narrative: Mr. Godinez's sleep last night was interrupted by staff coming into the room. This afternoon he feels better than yesterday. He is now off supplemental oxygen. He still has a cough, but it's not as severe. He feels as if his chest is loosening up. He is less short of breath with moving across the room and in the halls, his appetite has improved but he is still short of breath walking in the halls. Objective - Review of Systems Generalized/Overall Review: Reports: Malaise EENTM: Reports: No Symptoms Reported Respiratory: Reports: Cough, Shortness of Breath Abdominal: Reports: No Symptoms Reported Genitourinary Symptoms: Reports: No Symptoms Reported Musculoskeletal Complaints: Reports: No Symptoms Reported Neurological: Reports: No Symptoms Reported Skin: Reports: No Symptoms Reported Endocrine: Reports: No Symptoms Reported Misc: All systems neg except as marked - Vitals Vitals: Last Vital Signs Selected Entries 04/22/16 10:19 Temperature 36.7 C Temperature Oral Source Pulse Rate 90 Respiratory 20 Rate Blood Pressure 132/79 Blood Pressure Supine Position O2 Sat by Pulse 95 Oximetry Oxygen Delivery Room Air Method - Abnormal Lab Findings Abnormal Lab Findings: Abnormal Lab Results 04/22/16 04/22/16 Range/Units 05:10 05:10 WBC 14.5 H (4.0-10.5) K/mm3 RBC 4.38 L (4.7-6.0) M/mm3 Hgb 13.3 L (13.5-18.0) gm/dL Hct 41.4 L (42.0-52.0) % RDW 14.2 H (11.5-14.0) % MPV 11.1 H (6.0-9.5) fl Immature Gran % (Auto) 2.80 H (0.001-0.429) % Immature Gran # (Auto) 0.41 H (0.000-0.0310) K/mm3 Neutrophils % 87.4 H (42-75.0) % Lymphocytes % 7.0 L (20-51) % Neutrophils # 12.6 H (1.3-6.0) K/mm3 Lymphocytes # 1.0 L (1.5-3.5) k/mm3 Carbon Dioxide 33.8 H (24-32.6) mmol/L Random Glucose 172 H (70-110) mg/dL - Exam Constitutional: Present: Alert, Oriented x3, Cooperative, Well developed, Well nourished, No distress, Mild distress ENT Exam: Present: normal ENT inspection, hearing grossly normal Respiratory: Present: rhonchi, expiration (prolonged) Cardiovascular/Chest: Present: regular rate, rhythm, no murmur Abdomen: Present: Normal bowel sounds, soft, nontender, nondistended, no rebound tenderness, no hepatospenomegaly, no masses Extremity: Present: normal inspection, no pedal edema Skin Exam: Present: normal color, warm/dry, no cyanosis Appearance: Present: appropriate appearance, appropriate insight, neat, no memory impairment Eye contact: Present: cooperative, good eye contact, normal speech Thoughts: Present: normal thought pattern Assessment/Plan Plan Narrative: Increase ambulation. Follow labs. IV steroids, IV antibiotics and breathing treatments. Home in 2 days. - Problems/Diagnosis (1) COPD exacerbation Problem: Acute (2) Acute respiratory failure with hypoxia Problem: Acute (3) BPH (benign prostatic hypertrophy) with urinary retention Problem: Chronic (4) COPD (chronic obstructive pulmonary disease) Problem: Chronic Qualifiers: COPD type: COPD with acute exacerbation Qualified Code(s): J44.1 - Chronic obstructive pulmonary disease with (acute) exacerbation (5) Chronic mid back pain Problem: Chronic Qualifiers: Back pain laterality: midline Qualified Code(s): M54.6 - Pain in thoracic spine; G89.29 - Other chronic pain (6) HTN (hypertension) Problem: Chronic Qualifiers: Hypertension type: essential hypertension Qualified Code(s): I10 - Essential (primary) hypertension (7) Pneumonia Problem: Suspected Qualifiers: Pneumonia type: aspiration pneumonia Aspiration pneumonia type: due to vomit Laterality: bilateral Lung location: unspecified part of lung Qualified Code(s): J69.0 - Pneumonitis due to inhalation of food and vomit (8) Hyperglycemia, drug-induced Problem: Acute
[2016-04-22] MEDS: 0.5 NORMAL SALINE 1,000 ML IV PRN (14:44)
[2016-04-23] MEDS: METHYLPREDNISOLONE SOD SUCC 60 MG in WATER FOR INJ.,BACTERIOSTATIC 0 ML IV SCH ×4 (01:09→20:22)
[2016-04-23] MEDS: ALBUTEROL SULFATE/IPRATROPIUM 3 ML NEBU IH SCH ×6 (03:15→22:07)
[2016-04-23 06:07] LABS: Hematocrit 41.6 % (42.0-52.0); Hemoglobin 13.6 gm/dL (13.5-18.0); Mean Cell Volume 93.7 fl (78-100); Mean Corpuscular Hemoglobin 30.6 pg (27-31); Mean Corpuscular Hgb Conc 32.7 g/dl (32-36); Mean Platelet Volume 11.4 fl (6.0-9.5); Neutrophil # 13.3 K/mm3 (1.3-6.0); Neutrophil % 90.3 % (42-75.0); Platelet Count 401 K/mm3 (150-450); Red Blood Count 4.44 M/mm3 (4.7-6.0); Red Cell Distribution Width 14.3 % (11.5-14.0); White Blood Count 14.8 K/mm3 (4.0-10.5)
[2016-04-23 06:29] LABS: Anion Gap 7.9 mmol/L (6.8-13.8); BUN/Creatinine Ratio 23.1 (9.0-21.6); Calcium * 8.6 mg/dL (7.9-10.9); Carbon Dioxide 34.6 mmol/L (24-32.6); Estimated Creat Clear 110.5; Potassium 4.5 mmol/L (3.4-4.6)
[2016-04-23] MEDS: INSULIN DETEMIR 100 UNITS/ML VIAL SC SCH ×2 (07:37→19:40)
[2016-04-23] MEDS: ENOXAPARIN SODIUM 40 MG/0.4 ML SYRG SC SCH (07:38)
[2016-04-23] MEDS: DENTAL ADHESIVE 39 APPL TUBE TP SCH (08:32)
[2016-04-23] MEDS: tiZANidine HCL 4 MG TABLET PO SCH ×3 (08:32→16:55)
[2016-04-23] MEDS: TAMSULOSIN HCL 0.4 MG CAP.SR.24H PO SCH (08:32)
[2016-04-23] MEDS: DULoxetine HCL 30 MG CAPSULE.SA PO SCH ×2 (08:32→20:24)
[2016-04-23] MEDS: FINASTERIDE 5 MG TABLET PO SCH (08:32)
[2016-04-23] MEDS: FLUTICASONE/SALMETEROL 14 PUFF DISK.W.DEV IH SCH ×2 (08:32→20:20)
[2016-04-23] MEDS: DILTIAZEM HCL 180 MG CAP.SR.24H PO SCH (08:32)
--- NOTE | 2016-04-23 10:35 | PN ---
Subjective - Date and Time Seen Date: 04/23/16 Time: 10:32 Subjective Narrative: Beginning to feel human again. Stronger. Less cough. Less SOB. More active. Objective - Review of Systems Generalized/Overall Review: Reports: Malaise EENTM: Reports: No Symptoms Reported Respiratory: Reports: Cough, Shortness of Breath Cardiac: Reports: No Symptoms Reported Abdominal: Reports: No Symptoms Reported Genitourinary Symptoms: Reports: No Symptoms Reported Musculoskeletal Complaints: Reports: No Symptoms Reported Neurological: Reports: No Symptoms Reported Skin: Reports: No Symptoms Reported Endocrine: Reports: No Symptoms Reported Misc: All systems neg except as marked - Vitals Vitals: Last Vital Signs Selected Entries 04/23/16 04/23/16 09:55 10:10 Temperature 36.4 C L Temperature Oral Source Pulse Rate 92 91 Respiratory 18 20 Rate Respiratory Normal Depth Respiratory Normal Effort Non-Labored Respiratory Normal Pattern Blood Pressure 128/65 Blood Pressure Sitting Position O2 Sat by Pulse 95 97 Oximetry Oxygen Delivery Room Air Room Air Method - Abnormal Lab Findings Abnormal Lab Findings: Abnormal Lab Results 04/23/16 04/23/16 Range/Units 04:50 04:50 WBC 14.8 H (4.0-10.5) K/mm3 RBC 4.44 L (4.7-6.0) M/mm3 Hct 41.6 L (42.0-52.0) % RDW 14.3 H (11.5-14.0) % MPV 11.4 H (6.0-9.5) fl Immature Gran % (Auto) 2.00 H (0.001-0.429) % Immature Gran # (Auto) 0.30 H (0.000-0.0310) K/mm3 Neutrophils % 90.3 H (42-75.0) % Lymphocytes % 6.0 L (20-51) % Neutrophils # 13.3 H (1.3-6.0) K/mm3 Lymphocytes # 0.9 L (1.5-3.5) k/mm3 Carbon Dioxide 34.6 H (24-32.6) mmol/L BUN/Creatinine Ratio 23.1 H (9.0-21.6) Random Glucose 141 H (70-110) mg/dL - Exam Constitutional: Present: Alert, Oriented x3, Cooperative, Well developed, Well nourished, Mild distress ENT Exam: Present: normal ENT inspection, pharynx normal, hard of hearing Neck: Present: normal inspection Respiratory: Present: decreased breath sounds, wheezing, expiration (prolonged) Cardiovascular/Chest: Present: regular rate, rhythm Abdomen: Present: Normal bowel sounds, soft, nontender, nondistended, no rebound tenderness, no hepatospenomegaly, no masses Extremity: Present: normal inspection, no pedal edema Skin Exam: Present: normal color, warm/dry, no cyanosis Neurologic: Present: alert, oriented x 3 Appearance: Present: appropriate appearance, appropriate insight, neat Eye contact: Present: cooperative, good eye contact, normal speech Thoughts: Present: normal thought pattern Assessment/Plan Plan Narrative: IV steroids, IV antibiotics, breathing treatments. Follow labs. home tomorrow. - Problems/Diagnosis (1) COPD exacerbation Problem: Acute (2) Acute respiratory failure with hypoxia Problem: Acute (3) BPH (benign prostatic hypertrophy) with urinary retention Problem: Chronic (4) COPD (chronic obstructive pulmonary disease) Problem: Chronic Qualifiers: COPD type: COPD with acute exacerbation Qualified Code(s): J44.1 - Chronic obstructive pulmonary disease with (acute) exacerbation (5) Chronic mid back pain Problem: Chronic Qualifiers: Back pain laterality: midline Qualified Code(s): M54.6 - Pain in thoracic spine; G89.29 - Other chronic pain (6) HTN (hypertension) Problem: Chronic Qualifiers: Hypertension type: essential hypertension Qualified Code(s): I10 - Essential (primary) hypertension (7) Pneumonia Problem: Suspected Qualifiers: Pneumonia type: aspiration pneumonia Aspiration pneumonia type: due to vomit Laterality: bilateral Lung location: unspecified part of lung Qualified Code(s): J69.0 - Pneumonitis due to inhalation of food and vomit (8) Hyperglycemia, drug-induced Problem: Acute
[2016-04-24] MEDS: METHYLPREDNISOLONE SOD SUCC 60 MG in WATER FOR INJ.,BACTERIOSTATIC 0 ML IV SCH ×2 (02:15→07:05)
[2016-04-24] MEDS: ALBUTEROL SULFATE/IPRATROPIUM 3 ML NEBU IH SCH ×2 (02:19→06:09)
[2016-04-24 05:34] LABS: Hematocrit 41.2 % (42.0-52.0); Hemoglobin 13.5 gm/dL (13.5-18.0); Mean Cell Volume 93.6 fl (78-100); Mean Corpuscular Hemoglobin 30.7 pg (27-31); Mean Corpuscular Hgb Conc 32.8 g/dl (32-36); Mean Platelet Volume 11.1 fl (6.0-9.5); Neutrophil # 15.3 K/mm3 (1.3-6.0); Neutrophil % 91.9 % (42-75.0); Platelet Count 392 K/mm3 (150-450); Red Cell Distribution Width 14.3 % (11.5-14.0); White Blood Count 16.7 K/mm3 (4.0-10.5)
[2016-04-24 05:50] LABS: Anion Gap 11.6 mmol/L (6.8-13.8); BUN/Creatinine Ratio 24.7 (9.0-21.6); Calcium * 8.4 mg/dL (7.9-10.9); Estimated Creat Clear 101.4; Potassium 4.6 mmol/L (3.4-4.6)
[2016-04-24 06:26] VITALS: BP 125/74
[2016-04-24] MEDS: ENOXAPARIN SODIUM 40 MG/0.4 ML SYRG SC SCH (07:03)
[2016-04-24] MEDS: INSULIN DETEMIR 100 UNITS/ML VIAL SC SCH (07:04)
--- NOTE | 2016-04-24 07:18 | DS ---
(1) COPD exacerbation Problem: Acute (2) Acute respiratory failure with hypoxia Problem: Acute (3) BPH (benign prostatic hypertrophy) with urinary retention Problem: Chronic (4) COPD (chronic obstructive pulmonary disease) Problem: Chronic Qualifiers: COPD type: COPD with acute exacerbation Qualified Code(s): J44.1 - Chronic obstructive pulmonary disease with (acute) exacerbation (5) Chronic mid back pain Problem: Chronic Qualifiers: Back pain laterality: midline Qualified Code(s): M54.6 - Pain in thoracic spine; G89.29 - Other chronic pain (6) HTN (hypertension) Problem: Chronic Qualifiers: Hypertension type: essential hypertension Qualified Code(s): I10 - Essential (primary) hypertension (7) Pneumonia Problem: Suspected Qualifiers: Pneumonia type: aspiration pneumonia Aspiration pneumonia type: due to vomit Laterality: bilateral Lung location: unspecified part of lung Qualified Code(s): J69.0 - Pneumonitis due to inhalation of food and vomit (8) Hyperglycemia, drug-induced Problem: Acute (9) Tobacco abuse Problem: Chronic Description of Stay: The patient improved with IV steroids, IV antibiotics, and nebulized medication. In the early part of his hospital stay he also required supplemental oxygen, which was subsequently weaned. He is now off supplemental oxygen. His blood sugar went up and response to the steroids, but he normally does not have diabetes, and probably his blood sugars will come down to normal as the dose of his steroids decreases and is stopped. Short of breath, but much much better and is able to go home today. He is still not doing well enough to go to work, and we will keep him off until this coming Sunday. He requires a nebulizer machine for nebulized medication at home, so we will also provide him a prescription for that. We have encouraged him to remain off cigarettes. He says he will try to stay off cigarettes, but he is making no promises. I attribute his current leukocytosis to the use of moderately high dose Solu-Medrol. Procedures Performed: none Discharge Disposition: Home self care Disposition: Home self-care Condition: Good Discharge Activity: Activity as tolerated - no work for the time being. Referrals: Omar Nielsen MD [Primary Care Provider] - Problem Oriented Discharge Instructions to Patient/Family: Chronic Obstructive Pulmonary Disease Exacerbation, [id number] Additional Patient Instructions (free text): Followup Dr. Palomares 1 week. CBC and BMP blood tests fasting in 1 week. Prescriptions (Any new or edited meds): Acetaminophen [Tylenol] 650 mg PO QID PRN #1 tablet PRN Reason: Mild Pain Albuterol Sulfate [Albuterol Sulfate 2.5 MG/0.5ML] 2.5 mg IH Q4H PRN #100 vial.neb PRN Reason: Wheeze Cefuroxime Axetil [Ceftin] 500 mg PO BID #30 tab Nebulizer [Compact Ultrasonic Nebulizer] 1 each MC Q4H #1 kit Prednisone [Deltasone] 1.5 tab PO BID #30 tablet Complete Home Medications List: Complete Home Medication List: Diltiazem HCl [Tiazac] 360 mg PO DAILY 08/05/14 Mometasone/Formoterol [Dulera 200 Mcg/5 Mcg Inhaler] 2 puff IH BID 08/05/14 Tiotropium Mertzon [Spiriva] 1 cap IH DAILY 08/05/14 Duloxetine HCl [Cymbalta] 60 mg PO BID 04/17/16 Finasteride [Proscar] 5 mg PO DAILY 04/17/16 Tamsulosin HCl [Flomax] 0.4 mg PO DAILY 04/17/16 Tizanidine HCl 4 mg PO TID 04/17/16 Acetaminophen [Tylenol] 650 mg PO QID PRN #1 tablet 04/24/16 Albuterol Sulfate [Albuterol Sulfate 2.5 MG/0.5ML] 2.5 mg IH Q4H PRN #100 vial.neb 04/24/16 Cefuroxime Axetil [Ceftin] 500 mg PO BID #30 tab 04/24/16 Dental Adhesive [Fixodent Denture Adhesive] 1 appl TP DAILY tube 04/24/16 Nebulizer [Compact Ultrasonic Nebulizer] 1 each MC Q4H #1 kit 04/24/16 Prednisone [Deltasone] 1.5 tab PO BID #30 tablet 04/24/16
[2016-04-24] MEDS: tiZANidine HCL 4 MG TABLET PO SCH (09:26)
[2016-04-24] MEDS: FLUTICASONE/SALMETEROL 14 PUFF DISK.W.DEV IH SCH (09:26)
[2016-04-24] MEDS: FINASTERIDE 5 MG TABLET PO SCH (09:26)
[2016-04-24] MEDS: TAMSULOSIN HCL 0.4 MG CAP.SR.24H PO SCH (09:26)
[2016-04-24] MEDS: DULoxetine HCL 30 MG CAPSULE.SA PO SCH (09:26)
[2016-04-24] MEDS: DILTIAZEM HCL 180 MG CAP.SR.24H PO SCH (09:26)
[2016-04-24] MEDS: DENTAL ADHESIVE 39 APPL TUBE TP SCH (09:27)
== END 2016-04-24 10:17 | disposition home or self-care (01) | DRG 177 ==
LOC: ER 15:16 → MS 17:44 → OBSVTOIN 17:52
PROVIDERS: ADMIT Internal Medicine; ATTEND Allergy & Immunology
DX: J69.0 Pneumonitis due to inhalation of food and vomit (principal); J96.01 Acute respiratory failure with hypoxia; J44.1 Chronic obstructive pulmonary disease with (acute) exacerbation; I10 Essential (primary) hypertension; N40.1 Benign prostatic hyperplasia with lower urinary tract symptoms; R33.8 Other retention of urine; M54.6 Pain in thoracic spine; G89.29 Other chronic pain; F17.210 Nicotine dependence, cigarettes, uncomplicated